=== PATIENT | female | born 1995 | race Two or more races ===

== ENCOUNTER → 2020-05-02 | Emergency (ER) | payer OTHER ==
[~2020-05-02] VITALS: Ht 162.6 cm; Wt 45.4 kg
[~2020-05-02] MED LIST: CEFUROXIME500 MG PO; KETO10TA2 PO; SSD25 GM TOP
== END | disposition home or self-care (01) ==
LOC: ER 19:08
DX: T22.111A Burn of first degree of right forearm, initial encounter (principal); T22.112A Burn of first degree of left forearm, initial encounter; T20.10XA Burn of first degree of head, face, and neck, unspecified site, initial encounter; W86.0XXA Exposure to domestic wiring and appliances, initial encounter; Y93.89 Activity, other specified; Y92.090 Kitchen in other non-institutional residence as the place of occurrence of the external cause; Y99.8 Other external cause status

== ENCOUNTER 2022-05-15 23:09 | Emergency (ER) | payer OTHER ==
[~2022-05-15] VITALS: Ht 162.6 cm; Wt 47.2 kg
[2022-05-15] MEDS ORDERED: AMOX1TAB5 PO (23:19)
[2022-05-15] MEDS ORDERED: CIPRO500 MG PO (23:19)
== END 2022-05-16 03:15 | disposition home or self-care (01) ==
LOC: ER 23:09
DX: N30.90 Cystitis, unspecified without hematuria (principal)